=== PATIENT | female | born 1960 | race American Indian/Alaskan Native ===

== ENCOUNTER 2018-10-03 01:41 | Emergency (ER) | payer MEDICAID ==
[2018-10-03 01:42] VITALS: BMI 29.2
--- NOTE | 2018-10-03 02:43 | ED PDOC ---
Arrival/HPI - General Chief Complaint: Back Pain Time Seen by Provider: 10/03/18 02:27 Historian: Patient - History of Present Illness Narrative History of Present Illness (Text): 10/03/18 02:42 Danae Graves is a 57 year old female, whose past medical history includes pyelonephritis, who presents to the Emergency department complaining of lower back pain for 1 week. Patient states she was recently diagnosed with a UTI and placed on Amoxicillin 2 weeks ago. Patient states she did not immediately start the medication and is currently still taking the 10 day course of antibiotics. Patient also notes she has lifted heavy objects, states she had to pickle maker her grandson after he fell at home. Patient denies any fever, chills, hematuria, saddle paresthesias, headache, dizziness, or any other complaints. Symptom Onset: Gradual Symptom Course: Unchanged Activities at Onset: Light Context: Home Past Medical History - Provider Review Nursing Documentation Reviewed: Yes - Infectious Disease Hx of Infectious Diseases: None - Tetanus Immunization Tetanus Immunization: Unknown - Past Medical History Past Medical History: No Previous - Cardiac Hx Cardiac Disorders: No - Pulmonary Hx Respiratory Disorders: Yes Hx Pneumonia: Yes - Neurological Hx Neurological Disorder: No - HEENT Hx HEENT Disorder: No - Renal Hx Renal Disorder: No Other/Comment: kidney infection - Endocrine/Metabolic Hx Endocrine Disorders: No - Hematological/Oncological Hx Blood Disorders: No - Integumentary Hx Dermatological Disorder: No - Musculoskeletal/Rheumatological Hx Musculoskeletal Disorders: No Hx Falls: No - Gastrointestinal Hx Gastrointestinal Disorders: No - Genitourinary/Gynecological Hx Genitourinary Disorders: Yes Other/Comment: Dermoid cyst 08/2013 - Psychiatric Hx Psychophysiologic Disorder: No Hx Substance Use: No - Past Surgical History Past Surgical History: No Previous - Surgical History Other/Comment: vein stripping LLE - Anesthesia Hx Anesthesia: No Hx Anesthesia Reactions: No Hx Malignant Hyperthermia: No - Suicidal Assessment Feels Threatened In Home Enviroment: No Family/Social History - Physician Review Nursing Documentation Reviewed: Yes Family/Social History: Unknown Family HX Smoking Status: Never Smoked Hx Alcohol Use: No Hx Substance Use: No Hx Substance Use Treatment: No Allergies/Home Meds Allergies/Adverse Reactions: Allergies tetracycline Allergy (Intermediate, Verified 10/03/18 01:44) RASH Review of Systems - Physician Review All systems were reviewed & negative as marked: Yes - Review of Systems Constitutional: Normal. absent: Fevers Eyes: Normal ENT: Normal Respiratory: Normal. absent: SOB, Cough Cardiovascular: Normal. absent: Chest Pain Gastrointestinal: Normal. absent: Abdominal Pain, Diarrhea, Nausea, Vomiting Musculoskeletal: Back Pain Skin: Normal. absent: Rash Neurological: Normal. absent: Headache, Dizziness Endocrine: Normal Hemo/Lymphatic: Normal Psychiatric: Normal Physical Exam Vital Signs Reviewed: Yes Temperature: Afebrile Blood Pressure: Normal Pulse: Regular Respiratory Rate: Normal Appearance: Positive for: Well-Appearing, Non-Toxic, Comfortable Pain Distress: None Mental Status: Positive for: Alert and Oriented X 3 - Systems Exam Head: Present: Atraumatic, Normocephalic Pupils: Present: PERRL Extroacular Muscles: Present: EOMI Conjunctiva: Present: Normal Mouth: Present: Moist Mucous Membranes Neck: Present: Normal Range of Motion Respiratory/Chest: Present: Clear to Auscultation, Good Air Exchange. No: Respiratory Distress, Accessory Muscle Use Cardiovascular: Present: Regular Rate and Rhythm, Normal S1, S2. No: Murmurs Abdomen: No: Tenderness, Distention, Peritoneal Signs Back: Present: Paraspinal Tenderness (Paralumbar tenderness and spasm). No: Midline Tenderness Upper Extremity: Present: Normal Inspection. No: Cyanosis, Edema Lower Extremity: Present: Normal Inspection. No: Edema Neurological: Present: GCS=15, CN II-XII Intact, Speech Normal Skin: Present: Warm, Dry, Normal Color. No: Rashes Psychiatric: Present: Alert, Oriented x 3, Normal Insight, Normal Concentration Medical Decision Making ED Course and Treatment: 10/03/18 02:42 Impression: 57 year old female complaining of lower back pain. Plan: -- Labs -- Urinalysis -- IV fluids -- Reassess and disposition Prior Visits: Notes and results from previous visits were reviewed. On 04/23/2016, pt was seen in the for back pain and urinary frequency. Pt was discharged home. Progress Notes: Reviewed EKG, NSR at 92 bpm[address] Non-specific ST/T wave changes. - EKG Interpretation Interpreted by ED Physician: Yes Type: 12 lead EKG - Scribe Statement The provider has reviewed the documentation as recorded by the Padmini Comer Provider Scribe Attestation: All medical record entries made by the Scribe were at my direction and personally dictated by me. I have reviewed the chart and agree that the record accurately reflects my personal performance of the history, physical exam, medical decision making, and the department course for this patient. I have also personally directed, reviewed, and agree with the discharge instructions and disposition. Disposition/Present on Arrival - Present on Arrival Any Indicators Present on Arrival: No History of DVT/PE: No History of Uncontrolled Diabetes: No Urinary Catheter: No History of Decub. Ulcer: No History Surgical Site Infection Following: None - Disposition Have Diagnosis and Disposition been Completed?: Yes Diagnosis: Back strain, Spasm of back muscles Disposition: HOME/ ROUTINE Disposition Time: 06:25 Patient Plan: Discharge Condition: GOOD Discharge Instructions (ExitCare): Muscle Spasms (DC), Low Back Pain (DC), Muscle Strain (DC) Additional Instructions: Avoid any lifting/avoid any strenuous physical activity/take meds as prescri bed/follow up with your doctor this week Prescriptions: Cyclobenzaprine [Cyclobenzaprine HCl] 10 mg PO TID PRN #15 tab PRN Reason: Muscle Spasm Naproxen [Naprosyn Tab] 375 mg PO BID PRN #12 tab PRN Reason: Pain, Moderate (4-7) Forms: [facility] (Georgian)
[2018-10-03] MEDS ORDERED: Sodium Chloride 0.9% 1,000 ML IV SCH (02:45)
[2018-10-03 03:17] LABS: URINE APPEARANCE CLEAR (CLEAR); URINE BILIRUBIN NEGATIVE (NEGATIVE); URINE BLOOD MODERATE (NEGATIVE); URINE GLUCOSE (UA) NEGATIVE (NEGATIVE); URINE LEUKOCYTE ESTERASE NEGATIVE Leu/uL (NEGATIVE); URINE PROTEIN NEGATIVE mg/dL (<30 mg/dL)
[2018-10-03 03:30] LABS: URINE BACTERIA FEW (NEG); URINE COLOR YELLOW (YELLOW); URINE WBC 0 - 2 /hpf (0-6)
[2018-10-03 03:33] LABS: HEMOGLOBIN 11.7 g/dL (12.0-16.0); MEAN CELL VOLUME 77.6 fl (80.0-105.0); MEAN CORPUSCULAR HEMOGLOBIN 25.2 pg (25.0-35.0); MEAN CORPUSCULAR HGB CONC 32.5 g/dl (31.0-37.0); MEAN PLATELET VOLUME 10.1 fl (7.0-11.0); RBC 4.64 10^6/uL (3.5-6.1); RED CELL DISTRIBUTION WIDTH 15.1 % (11.5-14.5); WHITE BLOOD COUNT 5.3 10^3/uL (4.5-11.0)
[2018-10-03 03:59] LABS: BLOOD UREA NITROGEN 19 mg/dL (7-21); CALCIUM 8.9 mg/dL (8.4-10.5); GFR NON-AFRICAN AMERICAN > 60
[2018-10-03 04:21] LABS: ALT/SGPT 40 U/L (7-56); AST/SGOT 64 U/L (14-36)
[2018-10-03 05:32] VITALS: RESP 18; TEMP 98.3; O2SAT 99
[2018-10-03 06:43] VITALS: BP 116/70; PULSE 90
--- NOTE | 2018-10-03 09:29 | CARD ---
APPROVED REPORT Date of service: 10/03/2018 EKG Measurement Heart [id number] <Conclusion> Normal sinus rhythm Possible Left atrial enlargement Non Specific ST_T Changes. Somatic Tremors.
--- NOTE | 2018-10-03 10:20 | CT ---
Date of service: 10/03/2018 PROCEDURE: CT Abdomen and Pelvis without intravenous contrast HISTORY: back pain COMPARISON: CT 01/07/2014 TECHNIQUE: Without contrast.. Contrast dose: Radiation dose: Total exam DLP = 343.6 mGy-cm. This CT exam was performed using one or more of the following dose reduction techniques: Automated exposure control, adjustment of the mA and/or kV according to patient size, and/or use of iterative reconstruction technique. FINDINGS: LOWER THORAX: Unremarkable. LIVER: Multiple calcified granulomas are again seen in the periphery of the liver. The findings are unchanged. GALLBLADDER AND BILE DUCTS: Unremarkable. PANCREAS: Unremarkable. No gross lesion or ductal dilatation. SPLEEN: Unremarkable. ADRENALS: Unremarkable. No mass. KIDNEYS AND URETERS: Unremarkable. No hydronephrosis. No solid mass. VASCULATURE: Unremarkable. No aortic aneurysm. No aortic atherosclerotic calcification or mural plaque present. BOWEL: Unremarkable. No obstruction. No gross mural thickening. Moderate constipation APPENDIX: Unremarkable. Normal appendix. PERITONEUM: Unremarkable. No free fluid. No free air. LYMPH NODES: Unremarkable. No enlarged lymph nodes. BLADDER: Unremarkable. REPRODUCTIVE: Unremarkable. BONES: No acute fracture. OTHER FINDINGS: The report concurs with the preliminary [facility] report IMPRESSION: No acute findings
== END 2018-10-03 06:42 | disposition home or self-care (01) ==
LOC: ED 01:41
DX: S39.012A Strain of muscle, fascia and tendon of lower back, initial encounter (principal); X58.XXXA Exposure to other specified factors, initial encounter; M62.830 Muscle spasm of back
CPT/HCPCS: 74176; 80053; 81001; 85027; 93005; 96374; 99283; J1885; J7030

== ENCOUNTER 2019-02-05 15:57 | Emergency (ER) | payer MEDICAID | END 2019-02-05 19:38 | disposition home or self-care (01) | LOC: ED 15:57 ==